=== PATIENT | male | born 2000 | race Caucasian/White ===

== ENCOUNTER 2025-01-31 11:53 | Emergency (ER) | payer OTHER ==
[~2025-01-31] VITALS: Ht 185.4 cm; Wt 94.1 kg
[2025-01-31] MEDS ORDERED: Tdap Vaccine 0.5 ML SYRINGE IM ONE (13:00)
[2025-01-31] MEDS ORDERED: Cephalexin 500 MG CAP PO ONE (13:00)
[2025-01-31] MEDS ORDERED: NORCO 325 MG-51 TA1 PO (13:37)
[2025-01-31] MEDS ORDERED: CEPHALEXIN500 M1 PO (13:37)
[2025-01-31] MEDS ORDERED: Ibuprofen 200 MG TAB PO ONE (14:00)
[2025-01-31 14:25] VITALS: BP 151/100
== END 2025-01-31 14:26 | disposition home or self-care (01) ==
LOC: ED 11:53
DX: S91.322A Laceration with foreign body, left foot, initial encounter (principal); W29.3XXA Contact with powered garden and outdoor hand tools and machinery, initial encounter
CPT/HCPCS: 90715